=== PATIENT | female | born 2000 | race African-American/Black ===

== ENCOUNTER 2021-09-18 13:14 | Emergency (ER) | payer OTHER ==
[~2021-09-18] VITALS: Ht 175.3 cm; Wt 80.0 kg
[2021-09-18] MEDS ORDERED: OLANZAPINE 10 MG/VIAL IM ONE (13:45)
[2021-09-18] MEDS ORDERED: SODIUM CHLORIDE 0.9% 1,000 ML IV ONE (13:45)
[2021-09-18 14:16] LABS: BASOPHILS % 0.5 % (0.0-2.0); EOSINOPHILS % 1.6 % (0.0-5.0); HEMATOCRIT. 38.5 % (36.0-48.0); HEMOGLOBIN. 12.8 g/dL (12.0-16.0); LYMPHOCYTES % 25.3 % (20.0-50.0); MEAN CORPUSCULAR HEMOGLOBIN 28.9 pg (28.0-32.0); MEAN CORPUSCULAR VOLUME 87.4 fL (81.0-99.0); MEAN PLATELET VOLUME 7.8 fl (7.4-10.4); MONOCYTES % 7.4 % (2.0-8.0); NEUTROPHILS % 65.2 % (40.0-76.0); PLATELET 260 x1000/uL (130-400); RED BLOOD CELL COUNT 4.41 mill/uL (4.2-5.4); RED CELL DISTRIBUTION WIDTH 13.4 % (11.6-14.6)
[2021-09-18 14:27] LABS: CHLORIDE 105 mEq/L (98-107)
[2021-09-18 14:33] LABS: HCG SCREEN NEGATIVE
[2021-09-18 14:34] LABS: ETHANOL BLOOD < 10 mg/dL
[2021-09-18] MEDS ORDERED: OLANZAPINE 10 MG/VIAL IM NR (15:52)
[2021-09-18] MEDS ORDERED: LORAZEPAM 2MG/ML CPJ IM ONE (16:30)
[2021-09-18] MEDS ORDERED: DIPHENHYDRAMINE 50MG/ML VIAL IM ONE (17:15)
[2021-09-18] MEDS: LORAZEPAM 2MG/ML CPJ IM ONE ×2 (17:15→21:27)
[2021-09-18 18:54] LABS: HEPATITIS B SURFACE ANTIGEN NEGATIVE
[2021-09-18] MEDS ORDERED: LORAZEPAM 2MG/ML CPJ IM NR (21:30)
[2021-09-19] MEDS ORDERED: OLANZAPINE 10 MG/VIAL IM ONE ×2 (01:45→09:15)
[2021-09-19 02:05] LABS: CLARITY URINE CLEAR (CLEAR); COLOR URINE DARK YELLOW (YELLOW); KETONES URINE TRACE (NEGATIVE); LEUKOCYTE ESTERASE URINE TRACE (NEGATIVE); NITRITE URINE NEGATIVE (NEGATIVE); OCCULT BLOOD URINE 3+ (NEGATIVE); PH URINE 5.5 (4.5-8.0); PROTEIN URINE 2+ (NEGATIVE); SPECIFIC GRAVITY URINE 1.037 (1.005-1.030)
[2021-09-19 02:16] LABS: *AMPHETAMINES SCREEN URINE NEGATIVE (NEGATIVE); *BARBITURATES SCREEN URINE NEGATIVE (NEGATIVE); *COCAINE SCREEN URINE NEGATIVE (NEGATIVE); METHADONE URINE SCREEN NEGATIVE (NEGATIVE); OPIATES URINE SCREEN NEGATIVE (NEGATIVE); PHENCYCLIDINE URINE SCREEN NEGATIVE (NEGATIVE)
[2021-09-19 02:21] LABS: *BENZODIAZEPINES SCREEN URINE PRESUMTIVE POSITIVE (NEGATIVE); CANNABINOID URINE SCREEN PRESUMTIVE POSITIVE (NEGATIVE)
[2021-09-19] MEDS: DIVALPROEX SODIUM 500MG DR TABLET PO SCH ×2 (09:00→21:00)
[2021-09-19] MEDS: OLANZAPINE 5MG TABLET ODT PO SCH ×2 (09:00→17:00)
[2021-09-19] MEDS ORDERED: LORAZEPAM 2MG/ML CPJ IM STA ×2 (09:11→17:52)
[2021-09-19] MEDS ORDERED: HALOPERIDOL LACTATE 5MG/ML VIAL IM STA (17:52)
[2021-09-20] MEDS ORDERED: LORAZEPAM 2MG/ML CPJ IM ONE (08:00)
[2021-09-20] MEDS ORDERED: DIPHENHYDRAMINE 50MG/ML VIAL IM PRN (08:00)
[2021-09-20] MEDS ORDERED: OLANZAPINE 10 MG/VIAL IM ONE (08:00)
[2021-09-20] MEDS: DIVALPROEX SODIUM 500MG DR TABLET PO SCH (08:14)
[2021-09-20] MEDS: OLANZAPINE 5MG TABLET ODT PO SCH (08:14)
[2021-09-20 13:30] VITALS: BP 117/79
== END 2021-09-20 13:30 | disposition home or self-care (01) ==
LOC: ER 13:14
DX: R45.1 Restlessness and agitation (principal); R45.851 Suicidal ideations; R00.0 Tachycardia, unspecified; Z20.822 Contact with and (suspected) exposure to COVID-19
CPT/HCPCS: 36415; 80053; 80305; 80307; 80320; 80329; 81001; 84703; 85025; 86705; 86709; 86803; 87340; 93005; 96372; 99285; C9803; J1200; J1630; J2060; J3490; J7030; U0003; U0005; G0480

== ENCOUNTER 2024-12-14 03:07 | Emergency (ER) | payer MEDICAID, OTHER ==
[~2024-12-14] VITALS: Ht 177.8 cm; Wt 101.4 kg
[2024-12-14 03:12] VITALS: O2SAT 99
[2024-12-14 03:54] LABS: CLARITY URINE CLOUDY (CLEAR); COLOR URINE YELLOW (YELLOW); GLUCOSE URINE NEGATIVE (NEGATIVE); KETONES URINE TRACE (NEGATIVE); LEUKOCYTE ESTERASE URINE 2+ (NEGATIVE); NITRITE URINE NEGATIVE (NEGATIVE); OCCULT BLOOD URINE 3+ (NEGATIVE); PH URINE 6.0 (4.5-8.0); PROTEIN URINE 1+ (NEGATIVE); SPECIFIC GRAVITY URINE 1.033 (1.005-1.030); UROBILINOGEN URINE 1.0 E.U./dL (0.2-1.0)
[2024-12-14 03:55] LABS: BACTERIA URINE 2+; SQUAMOUS EPITHELIAL CELL URINE FEW /lpf (RARE/1+)
[2024-12-14] MEDS ORDERED: AMOX1TAB16 MT (06:20)
[2024-12-14] MEDS ORDERED: PYR200 MT (06:20)
[2024-12-14 06:22] VITALS: BP 117/70; PULSE 95; RESP 14; TEMP 36.7; O2SAT 97
== END 2024-12-14 06:29 | disposition home or self-care (01) ==
LOC: ER 03:07
DX: N39.0 Urinary tract infection, site not specified (principal)
CPT/HCPCS: 81003; 81025; 99283

== ENCOUNTER 2024-12-23 06:23 | Emergency (ER) | payer MEDICAID, OTHER ==
[~2024-12-23] VITALS: Ht 177.8 cm; Wt 96.4 kg
[~2024-12-23 06:23] MED LIST: AMOX1TAB16 MT; PYR200 MT
[2024-12-23 06:26] VITALS: TEMP 36.9; O2SAT 98
[2024-12-23] MEDS: LIDOCAINE HCL 1% 20ML VIAL INFIL ONE (07:55)
[2024-12-23] MEDS: CEFTRIAXONE SODIUM 500MG VIAL IM ONE (07:55)
[2024-12-23 09:24] LABS: CLARITY URINE CLEAR (CLEAR); COLOR URINE YELLOW (YELLOW); GLUCOSE URINE NEGATIVE (NEGATIVE); KETONES URINE TRACE (NEGATIVE); LEUKOCYTE ESTERASE URINE 3+ (NEGATIVE); NITRITE URINE NEGATIVE (NEGATIVE); OCCULT BLOOD URINE NEGATIVE (NEGATIVE); PH URINE 6.5 (4.5-8.0); PROTEIN URINE TRACE (NEGATIVE); SPECIFIC GRAVITY URINE 1.019 (1.005-1.030); UROBILINOGEN URINE 1.0 E.U./dL (0.2-1.0)
[2024-12-23] MEDS ORDERED: DOXY100C5 MT (09:36)
[2024-12-23] MEDS ORDERED: METR-167 MT (09:36)
[2024-12-23 09:41] LABS: BACTERIA URINE 2+; RBC URINE 0-2 /hpf (0-2); SQUAMOUS EPITHELIAL CELL URINE 3+ /lpf (RARE/1+); TRICHOMONAS URINE 1+; WBC URINE 15-25 /hpf (0-2); YEAST URINE NONE SEEN
[2024-12-23 09:50] LABS: HCG SCREEN NEGATIVE
[2024-12-23 09:59] VITALS: BP 129/76; PULSE 82; RESP 16; O2SAT 100
== END 2024-12-23 10:05 | disposition home or self-care (01) ==
LOC: ER 06:23
DX: A59.01 Trichomonal vulvovaginitis (principal); N89.8 Other specified noninflammatory disorders of vagina; R21 Rash and other nonspecific skin eruption; Z86.19 Personal history of other infectious and parasitic diseases; Z79.899 Other long term (current) drug therapy
CPT/HCPCS: 81003; 81025; 84703; 86592; 87086; 87210; 36415; 96372; 99284; J0696; J2003; Z7610 ×2

== ENCOUNTER 2025-02-27 09:20 | Emergency (ER) | payer OTHER ==
[~2025-02-27] VITALS: Ht 177.8 cm; Wt 100.0 kg
[~2025-02-27 09:20] MED LIST changes: +DOXY100C5 MT; +METR-167 MT
[2025-02-27 09:32] VITALS: O2SAT 99
[2025-02-27 10:30] LABS: CLARITY URINE CLOUDY (CLEAR); COLOR URINE YELLOW (YELLOW); GLUCOSE URINE NEGATIVE (NEGATIVE); KETONES URINE TRACE (NEGATIVE); LEUKOCYTE ESTERASE URINE NEGATIVE (NEGATIVE); NITRITE URINE NEGATIVE (NEGATIVE); OCCULT BLOOD URINE 2+ (NEGATIVE); PH URINE 5.5 (4.5-8.0); PROTEIN URINE TRACE (NEGATIVE); SPECIFIC GRAVITY URINE 1.038 (1.005-1.030); UROBILINOGEN URINE 1.0 E.U./dL (0.2-1.0)
[2025-02-27] MEDS ORDERED: BO1 TP (11:44)
[2025-02-27] MEDS ORDERED: DOXY100T28 MT (11:44)
[2025-02-27] MEDS: IBUPROFEN 800MG TABLET PO ONE (11:58)
[2025-02-27] MEDS: CEFTRIAXONE SODIUM 500MG VIAL IM ONE (11:58)
[2025-02-27 12:01] VITALS: BP 140/80; PULSE 95; RESP 15; TEMP 37; O2SAT 99
[2025-02-27 12:11] LABS: MUCUS URINE 3+ /lpf (< = 2+); SQUAMOUS EPITHELIAL CELL URINE 2+ /lpf (RARE/1+)
[2025-02-27 12:12] LABS: WBC URINE 0-2 /hpf (0-2)
[2025-02-27 12:15] LABS: BACTERIA URINE 2+; RBC URINE 0-2 /hpf (0-2)
[2025-02-28 17:07] LABS: CHLAMYDIA TRACHOMATIS NAA Negative (Negative); NEISSERIA GONORRHOEAE NAA Negative (Negative)
== END 2025-02-27 12:02 | disposition home or self-care (01) ==
LOC: ER 09:20
DX: T24.212A Burn of second degree of left thigh, initial encounter (principal); T24.211A Burn of second degree of right thigh, initial encounter; T31.0 Burns involving less than 10% of body surface; X58.XXXA Exposure to other specified factors, initial encounter; Y93.89 Activity, other specified; Y92.89 Other specified places as the place of occurrence of the external cause; Y99.8 Other external cause status
CPT/HCPCS: 99283; 87491; 87591; 81003; 81025; 96372; J0696